=== PATIENT | male | born 1995 | race Caucasian/White ===

== ENCOUNTER 2017-07-03 00:36 | Emergency (ER) | payer BC ==
[~2017-07-03] VITALS: Ht 182.9 cm; Wt 72.0 kg
[2017-07-03 00:40] VITALS: TEMP 36.6; Ht 182.9 cm; Wt 72.0 kg
[2017-07-03] MEDS ORDERED: IBUPROFEN 600 MG TAB PO STA (00:49)
[2017-07-03 01:27] VITALS: BP 138/68; PULSE 60; O2SAT 98
--- NOTE | 2017-07-03 01:31 | EMERGENCY ROOM VISIT NOTE ---
History Report prepared by Jael: Giovani Patel Under the Supervision of: Dr. Dc Salinas M.D. First contact with patient: 00:43 Chief Complaint: FINGER PAIN Stated Complaint: CAN'T MOVE RIGHT THUMB, PAIN, SWELLING History of Present Illness The patient is a 21 year old male who presents to the Emergency Room with complaints of constant right thumb pain beginning tonight. 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 He reports that he can now barely move his thumb. The patient states that he iced his thumb with mild relief of his pain. He notes that he has a history of a heart murmur. He rates his pain as a 6/10. Source of History: patient Onset: tonight Position: finger(s) (right thumb) Symptom Intensity: 6/10 Timing: constant Modifying Factors (Relieving): ice Review of Systems See HPI for pertinent positives & negatives. A total of 6 systems reviewed and were otherwise negative. Past Medical & Surgical Medical Problems: (1) Murmur Family History No pertinent family history stated. Social History Smoking Status: Never Smoker Marital Status: single Occupation Status: [employer] student Current/Historical Medications No Active Prescriptions or Reported Meds Allergies Coded Allergies: Lactose. (Verified Allergy, Unknown, stomach pain, 07/03/17) Physical Exam Vital Signs Date Time Temp Pulse Resp B/P (MAP) Pulse Ox O2 Delivery O2 Flow Rate FiO2 07/03/17 01:27 60 18 138/68 98 07/03/17 00:40 36.6 66 18 105/67 97 Room Air Physical Exam GENERAL: Sitting on stretcher, no significant distress. NEURO: Awake and alert, oriented x3, normal sensation to all aspects of the right thumb. EXTREMITIES: Right thumb is slightly swollen primarily at the MCP joint, no ligamentous laxity, normal capillary refill distally, no gross deformity, tender over MCP joint of the right thumb. Medical Decision & Procedures ER Provider Diagnostic Interpretation: Radiology results as stated below per my review and interpretation: RIGHT THUMB X-RAY: No fracture or dislocation. Medications Administered Medications (Trade) Dose Ordered Sig/Bridget Route Start Time Stop Time Status Last Admin Dose Admin Ibuprofen (Motrin Tab) 600 mg NOW STAT PO 07/03/17 00:49 07/03/17 00:51 DC 07/03/17 00:54 600 MG ED Course 0046: The patient was evaluated in room B4. A complete history and physical exam was performed. 0049: Ibuprofen 600mg PO 0122: Reevaluated the patient. Discussed results and discharge instructions: he verbalized understanding and agreement. The patient is ready for discharge. Medical Decision Differential diagnoses include: ligamentous injury, neurovascular compromise, strain, contusion, and fracture. Patient presents with an injury to his right thumb. On exam, there was no evidence for neurovascular compromise, no ligamentous laxity. All function of the thumb seemed intact. The patient was ordered for a film of the right thumb, no fracture or dislocation seen. The patient received oral Motrin and an ice pack. A splint was applied. He was discharged home. If not improving, he can follow with orthopedics. The patient's thumb appears sprained. Medication Reconcilliation Current Medication List: was personally reviewed by me Blood Pressure Screening Patient's blood pressure: Normal blood pressure Blood pressure disposition: Did not require urgent referral Impression Primary Impression: Sprain of right thumb Scribe Attestation The scribe's documentation has been prepared under my direction and personally reviewed by me in its entirety. I confirm that the note above accurately reflects all work, treatment, procedures, and medical decision making performed by me. Departure Information Dispostion Home / Self-Care Prescriptions No Active Prescriptions or Reported Meds Forms HOME CARE DOCUMENTATION FORM, IMPORTANT VISIT INFORMATION, WORK / SCHOOL INSTRUCTIONS Patient Instructions My [facility] [employer] Additional Instructions wear the brace for comfort ice for 30 minutes at a time several times a day for the next 2-3 days motrin 600 mg 3x per day for 5 days if not improving or worsening, set up orthopedic appt no fracture by film today
--- NOTE | 2017-07-03 07:02 | DIAGNOSTIC IMAGING REPORT ---
RIGHT THUMB 3 VIEWS CLINICAL HISTORY: Right thumb pain status post trauma COMPARISON: None. DISCUSSION: No fractures or dislocations are visualized. IMPRESSION: No fractures or dislocations identified. Electronically signed by: Jace Agrawal M.D. 07/03/2017 7:00 AM Dictated Date/Time: 07/03/2017 7:00 AM
== END 2017-07-03 01:28 | disposition home or self-care (01) ==
LOC: C.EDB 00:38
DX: S63.601A Unspecified sprain of right thumb, initial encounter (principal); X50.1XXA Overexertion from prolonged static or awkward postures, initial encounter; Y92.89 Other specified places as the place of occurrence of the external cause; Z91.011 Allergy to milk products